=== PATIENT | male | born 1985 | race Caucasian/White ===

== ENCOUNTER 2024-10-15 11:41 | Outpatient (CLI) | payer BC, SELFPAY ==
[2024-10-15 14:58] LABS: Coronavirus 19, PCR Not Detected (NotDetected); Influenza A, PCR Not Detected (NotDetected); Influenza B, PCR Not Detected (NotDetected)
--- OUTSIDE RECORDS SUMMARY | 2024-10-19 11:47 | XMS_ITS | Clinical Summary ---
Author Organization [facility] Address [address] [place] [address] Care Team Providers Care Tour Director Name Role Phone Provider, No Known Primary Care Provider Unavail able Social History Tobacco Use Types Packs/Day Years Used Date Smoking Tobacco: Never Assessed Abuse Screen Answer Date Recorded Unsafe at Home or Work/School Not on file Feels Threatened by Someone? Not on file 11/2022 Does Anyone Keep You from Co ntacting Others or Doint Things Outside the Home? Not on file 12/31/2022 Physical Sign of Abuse Present Not on file 1 Housing Stability Answer Date Recorded Current Living Arrangements Not on file 11/2022 Potentially Unsafe Housing Conditions Not on kameron e 12/31/2022 Family and Community Support Answer Willis e Recorded Help with Day-to-Day Activities Not on file 12/31/2022 Lonely or Isolated Not on file 12/31/2022 Employment Answer Date Recorded Do you want help finding or keeping work or a nai b? Not on file 12/31/2022 Disabilities Answer Date Recorded Concentrating, Remembering, or Making Decisions Difficulty Not on file 12/31/2022 Doing Errands Independently Difficulty Not on fi le 12/31/2022 Education Answer Date Recorded Help with school or training? Not on file Preferred Language Not on file 12/31/2022 Sex and Gender Information Value Date Recorded Sex Assigned at Not on file Legal Sex Male 1:29 PM EDT Gender Identity Not on file Sexual Orientation Not on file Last Filed Vital Signs Vital Sign Reading Time Taken Comments Blood Pressure 122/60 12/07/2014 1:15 PM EDT Pulse - - Temperature - - Respiratory Rate - - Oxygen Saturation - - Inhaled Oxygen Concentration - - Weight 74.8 kg (164 lb 15.9 oz) 12/07/2014 1:15 PM EDT Height 185.4 cm (6' 1 ) 12/07/2014 1:15 PM EDT Body Mass Index 21.77 12/07/2014 1:15 PM EDT Plan of Treatment Health Maintenance Due Date Last Done Comments ANNUAL PHYSICAL 1983 HEPATITIS C SCREENING 1983 TDAP/TD VACCINES (1 - Tdap) 08/18/2002 COVID-19 Vaccine ( - 2023-2 5 season) 2023 INFLUENZA VACCINE 12/23/2024 Pneumococcal Vaccine 0-49 Aged Out No longer eligible based on patient's age to complete this topic Insurance Member Subscriber Plan / Payer (Ef fective 2015-Present) Name:Juan Carlos Bolaños Relation to Subscriber:Self Name:Juan Carlos Bolaños Payer ID:[id number] (NAIC) Type:Not on file Address: [facility] [address] [place] [id number] Care Teams Tour Director Relationship Specialty Start Date End Date Provider, No Known [facility] [place] [address] PCP - General 11/04/14
--- OUTSIDE RECORDS SUMMARY | 2024-10-19 11:47 | XMS_ITS | Clinical Summary ---
Author Organization [facility] Address [address] [facility] [address], [address] [place] [address] Care Team Providers Care Job Analysis Manager Name Role Phone Wily Bello DO Primary Care Provider [phone] Social History Tobacco Use Types Packs/Day Years Used Date Smoking Tobacco: Never Assessed Sex and Gender Information Value Date Recorded Sex Assigned at Not on file Legal Sex Male 10:19 PM EST Gender Identity Not on file Sexual Orientation Not on file Plan of Treatment Not on file Care Teams Job Analysis Manager Relationship Specialty Start Date End Date Wily Bello DO [facility] [place] [address] PCP - General 06/09/11
--- OUTSIDE RECORDS SUMMARY | 2024-10-19 11:47 | XMS_ITS | Clinical Summary ---
Author Organization [facility] Address [address] [place] [address] Phone Care Team Providers Care Attendant Coin Operated Laundry Name Role Phone Unavailable Primary Care Provider Unavailabl e Allergies No known active allergies Medications psyllium seed, with sugar, (FIBER ORAL) Take by mouth 3 times daily. Active omeprazole (PRILOSEC) 40 mg Oral Capsule, Delayed Release(E.C.) Take 1 Capsule by mouth daily. 90 Capsule 3 4 Active Additional Information Patient not taking.Reason: Therapy Completed, Reported on 05/04/2024 Active Problems No known active problems Immunizations Immunization Administration Dates Next Due DTaP 11/18/1988, 8,11/18/1985,02/19/1984,10/24 IPV 11/18/1988, 7,02/19/1984,1983,09/23 MMR 10/11/1994,10/19/1988 Td, Unspecified Formulation 09/28/1998 Surgical History Surgery Date Site/Laterality Comments FRACTURE SURGERY COLONOSCOPY UPPER GASTROINTESTINAL ENDOSCOPY Medical History Medical History Date Comments Acne Colon polyp Family History Medical History Relation Name Comments Thyroid Disease Maternal Aunt Thyroid Disease Maternal Grandmother Thyroid Disease Mother Diabetes Paternal Grandfather Thyroid Disease Paternal Grandmother Relation Name Status Comments Father Alive Maternal Aunt Alive Maternal Grandmother Alive Mother Alive Paternal Grandfather Alive Paternal Grandmother Alive Social History Tobacco Use Types Packs/Day Years Used Date Smoking Tobacco: Never Smokeless Tobacco: Never Tobacco Cessation:Counseling Given: Not Answered Alcohol Use Standard Drinks/Week Comments No 0 (1 standard drink = 0.6 oz pur e alcohol) Sexually Active Control Partners Comments Yes Female Sex and Gender Information Value Date Recorded Sex Assigned at Not on file Legal Sex Male 4:10 PM EDT Gender Identity Not on file Sexual Orientation Not on file Obstetrics History Last Filed Vital Signs Vital Sign Reading Time Taken Comments Blood Pressure 116/71 05/04/2024 8:01 AM EST Pulse 73 05/04/2024 8:01 AM EST Temperature 36.4 C (97.5 F) 05/04/2024 6:46 AM EST Respiratory Rate 16 05/04/2024 8:01 AM EST Oxygen Saturation 98% 05/04/2024 8:01 AM EST Inhaled Oxygen Concentration - - Weight 93.4 kg (206 lb) 05/04/2024 6:46 AM EST Height 185.4 cm (6' 1 ) 05/04/2024 6:46 AM EST Body Mass Index 27.18 05/04/2024 6:46 AM EST Plan of Treatment Health Maintenance Due Date Last Done Comments Annual Wellness Exam 08/18/1986 Hepatitis B Vaccine (1 of 3 - 19+ 3-dose series) 08/18/2002 COVID-19 Vaccine (2023- season) 2023 Influenza Vaccine (#1) 2024 DTaP/TDaP/Td (7 - Td or Tdap) 07/09/2026 07/09/2016, 09/28/1998, 11/18/1988, Additional history exists Colon Cancer Screening 05/03/2029 Colonoscopy 05/03/2029 05/04/2024, 10/05/2014 Meningococcal B Vaccine Aged Out No l onger eligible based on patient's age to complete this topic Pneumococcal Vaccine 0-49 Aged Out No longer eligible based on patient's age to complete this topic Goals Goal Patient Goal Type Associated Problems Recent Progress Patient-Stated? Author Maintain a healthy diet, exercise regularly and maintain an ideal body weight General No Joanne Ibrahim RMA Procedures Procedure Name Priority Date/Time Associated Diagnosis Comments COLONOSCOPY Routine 05/04/2024 7:40 AM EST Personal history of adenomatous and serrated colon polyps from Last 3 Months or Most Recently Relevant to Health Maintenance Results * COLONOSCOPY (05/04/2024 7:40 AM EST) Anatomical Region Laterality Modality Endoscopy Narrative 05/04/2024 7:46 AM EST Table formatting from the original result was not included. Findings One 3 mm sessile and benign-appearing polyp in the transverse colon; performed cold snare removal Three internal medium, flat (grade 2) hemorrhoids; no bleeding was observed Recommendation Await pathology results Recommend a high fiber diet. Okay to resume all home medications. Repeat colonoscopy in 5 years, due: 05/03/2029 Personal history of colon polyps Colon polyps education Fibercon 2 tabs twice per day with meals Miralax 1 capful in 8 oz water at bedtime OTC [facility] one daily Keep a stool diary for 2 weeks Pre-Procedure Diagnosis / Indication Personal history of adenomatous and serrated colon polyps Post-Procedure Diagnosis Personal history of adenomatous and serrated colon polyps Staff Staff Role No Staff Documented Medications See Anesthesia Record. Preprocedure A history and physical has been performed, and patient medication allergies have been reviewed. The patient's tolerance of previous anesthesia has been reviewed. The risks and benefits of the procedure and the sedation options and risks were discussed with the patient. All questions were answered and informed consent obtained. ASA 2 - Patient with mild systemic disease Details of the Procedure The patient underwent monitored anesthesia care, which was administered by an anesthesia professional. The patient's blood pressure, heart rate, level of consciousness, oxygen, respirations, ECG and ETCO2 were monitored throughout the procedure. A digital rectal exam was performed. The scope was introduced through the anus and advanced to the terminal ileum. Retroflexion was performed in the rectum. The quality of bowel preparation was evaluated using the [place] Bowel Preparation Scale with scores of: right colon = 2, transverse colon = 2, left colon = 2. The total BBPS score was 6. Bowel prep was adequate. The patient experienced no blood loss. The procedure was not difficult. The patient tolerated the procedure well. There were no apparent adverse events. Patient provided education and educated on specific discharge instructions. Patient educated on medications given during the procedure and new medications for discharge. Patient verbalizes understanding of discharge education. Patient stable and awaiting transport for discharge. Events Procedure Events Event Event Time ENDO SCOPE IN TIME 05/04/2024 7:20 AM ENDO CECUM REACHED 05/04/2024 7:23 AM ENDO SCOPE WITHDRAW BEGIN 05/04/2024 7:24 AM TSG LUME TI REACHED 05/04/2024 7:25 AM ENDO SCOPE OUT TIME 05/04/2024 7:40 AM Specimens ID Type Source Tests Collected by Time 1 : 1 polyp Tissue Large Intestine, Transverse Colon TSG PATHOLOGY ORDER Mushatq Pozo MD 05/04/2024 [id number] Kaila SUAZO ENDOSCOPY PROCEDURE ORDERAB LES Final Result from Last 3 Months or Most Recently Relevant to Health Maintenance Insurance [employer] [facility]
--- OUTSIDE RECORDS SUMMARY | 2024-10-19 11:47 | XMS_ITS | Clinical Summary ---
Author Organization Healthcare Address [address] [place] [id number] Care Team Providers Care Career Development Director Name Role Phone Serjio Marie MD Primary Care Provider [phone] Immunizations Immunization Administration Dates Next Due Tdap 07/09/2016 Social History Tobacco Use Types Packs/Day Years Used Date Smoking Tobacco: Never Alcohol Use Standard Drinks/Week Comments No 0 (1 standard drink = 0.6 oz pur e alcohol) Sex and Gender Information Value Date Recorded Sex Assigned at Not on file Legal Sex Male 6:25 PM EDT Gender Identity Not on file Sexual Orientation Not on file Last Filed Vital Signs Vital Sign Reading Time Taken Comments Blood Pressure - - Pulse - - Temperature - - Respiratory Rate - - Oxygen Saturation - - Inhaled Oxygen Concentration - - Weight 83.5 kg (183 lb 15.9 oz) 08/23/2016 7:53 AM EDT Height 188 cm (6' 2 ) 08/23/2016 7:53 AM EDT Body Mass Index 23.62 08/23/2016 7:53 AM EDT Plan of Treatment Not on file Care Teams Career Development Director Relationship Specialty Start Date End Date Serjio Marie MD [address] [place] [id number] PCP - General 08/05/20
== END 2024-10-15 23:59 | disposition home or self-care (01) ==
LOC: LAB.DROPOF 10-19 11:42
PROVIDERS: Visit Provider Nurse Practitioner Family
DX: J06.9 Acute upper respiratory infection, unspecified (principal)
CPT/HCPCS: 87631